=== PATIENT | female | born 1950 | race Caucasian/White ===

== ENCOUNTER → 2018-12-29 | Day surgery (SDC) | payer MEDICARE, OTHER ==
[2018-12-25 13:30] LABS: Urine Blood Negative /uL (Negative); Urine Specific Gravity 1.007 (1.001-1.035)
[2018-12-25 13:33] LABS: Basophils # (auto) 0.1 uL; Basophils % (auto) 1.1 % (0.0-2.0); Eosinophils # (auto) 0.2 uL; Hematocrit 41.4 % (36.0-46.0); Lymphocytes # (auto) 1.5 uL; Lymphocytes % (auto) 28.7 % (10.0-50.0); Mean Corpuscular Hemoglobin 31.4 pg (28.0-32.0); Mean Corpuscular Hgb Conc. 33.9 g/dL (32.0-36.0); Mean Corpuscular Volume 92.8 fL (80.0-100.0); Monocytes # (auto) 0.5 uL; Monocytes % (auto) 10.2 % (0.0-12.0); Platelet Count (auto) 174 10^3/uL (140-450); Red Blood Cells 4.46 10^6/uL (4.0-5.20); Red Cell Distribution Width 13.2 % (11.8-14.3); White Blood Cell 5.2 10^3/uL (4.4-10.8)
[2018-12-25 13:49] LABS: Potassium 3.9 mmol/L (3.5-5.1)
[2018-12-25 13:55] LABS: Albumin 3.6 g/dL (3.4-5.0); BUN/Creatinine Ratio 16.2; Bilirubin, Total 0.4 mg/dL (0.2-1.0); Calcium 8.9 mg/dL (8.5-10.1); INR < 0.93 (0.9-1.15); Partial Thromboplastin Time 26.2 sec (23.64-32.05)
[~2018-12-29] VITALS: Ht 175.3 cm; Wt 79.4 kg
[~2018-12-29] MED LIST: BUPIVACAINE 0.25% INJ 50ML VIAL ONE; CLON0.5T10; CYA100I IM; GABA100C9 PO; HYDROmorphone HCL 2 MG/ML VL ONE; LEVO125T7 PO; LIDOCAINE W/ EPINEPHRINE 2% INJ 20ML VIAL ONE; MEPERIDINE HCL (25 MG/ML) 1ML VIAL ONE; METOCLOPRAMIDE HCL 5MG/ml INJ 2ml VIAL IV PRN; MIDAZOLAM HCL 1MG/1ML-2 ML VIAL IV ONE; MIDAZOLAM HCL 1MG/1ML-2 ML VIAL ONE; MORPHINE SULF(PF) 0.5MG/ML 10ML VIAL ONE; MORPHINE SULFATE 4 MG/ML SYR/VIAL IV PRN; ONDANSETRON HCL 4 MG/2 ML VIAL ONE; PROPOFOL 10 MG/ML 20 ML IV ONE; ROPIVACAINE 0.5% (5MG/ML) 20ML AMPULE IJ ONE; SIMV-8 PO; SODIUM CHLORIDE LOCK 10 ML ONE; THYR60TA PO; VORT1TAB3 PO; ZOLP10TA PO; ceFAZolin 1GM/50ML 50 ML IV ONE; fentaNYL CITRATE 100 MCG/2 ML VL IV PRN; fentaNYL CITRATE 100 MCG/2 ML VL ONE
[2018-12-29] MEDS: HYDROmorphone HCL 2 MG/ML VL IV PRN ×6 (10:19→11:46)
[2018-12-29 12:20] VITALS: BP 121/55
== END | disposition home or self-care (01) ==
LOC: SUR 06:13
PROVIDERS: ATTEND Orthopaedic Surgery
DX: S83.241A Other tear of medial meniscus, current injury, right knee, initial encounter (principal); S83.281A Other tear of lateral meniscus, current injury, right knee, initial encounter; Q68.2 Congenital deformity of knee; M17.11 Unilateral primary osteoarthritis, right knee; M24.561 Contracture, right knee; D16.31 Benign neoplasm of short bones of right lower limb; M65.861 Other synovitis and tenosynovitis, right lower leg; F41.9 Anxiety disorder, unspecified; Z90.710 Acquired absence of both cervix and uterus; Z90.49 Acquired absence of other specified parts of digestive tract; Z98.890 Other specified postprocedural states; X58.XXXA Exposure to other specified factors, initial encounter; Y93.89 Activity, other specified; Y92.89 Other specified places as the place of occurrence of the external cause; Y99.8 Other external cause status
CPT/HCPCS: 27360; 27420; 29876; 29880; 36415; 80053; 81003; 85025; 85610; 85730; 86850; 86900; 86901; 93005; J0690; J1170; J2175; J2250; J2270; J2405; J2704; J2795; J3010; J3490

== ENCOUNTER → 2020-05-10 | Outpatient (CLI) | payer MEDICARE, OTHER ==
[~2020-05-10] MED LIST changes: +ARIP5TAB15 PO; -BUPIVACAINE 0.25% INJ 50ML VIAL ONE; +CETI10TA80 PO; -CYA100I IM; +HYDR12.56 PO; -HYDROmorphone HCL 2 MG/ML VL ONE; -LEVO125T7 PO; +LEVO75TA6 PO; -LIDOCAINE W/ EPINEPHRINE 2% INJ 20ML VIAL ONE; -MEPERIDINE HCL (25 MG/ML) 1ML VIAL ONE; -METOCLOPRAMIDE HCL 5MG/ml INJ 2ml VIAL IV PRN; -MIDAZOLAM HCL 1MG/1ML-2 ML VIAL IV ONE; -MIDAZOLAM HCL 1MG/1ML-2 ML VIAL ONE; -MORPHINE SULF(PF) 0.5MG/ML 10ML VIAL ONE; -MORPHINE SULFATE 4 MG/ML SYR/VIAL IV PRN; -ONDANSETRON HCL 4 MG/2 ML VIAL ONE; -PROPOFOL 10 MG/ML 20 ML IV ONE; -ROPIVACAINE 0.5% (5MG/ML) 20ML AMPULE IJ ONE; -SODIUM CHLORIDE LOCK 10 ML ONE; -THYR60TA PO; +TRAZ100T3 PO; -ZOLP10TA PO; +ZOLP12.52 PO; -ceFAZolin 1GM/50ML 50 ML IV ONE; -fentaNYL CITRATE 100 MCG/2 ML VL IV PRN; -fentaNYL CITRATE 100 MCG/2 ML VL ONE
== END | disposition home or self-care (01) ==
LOC: XYW 09:51
PROVIDERS: ATTEND Internal Medicine
DX: I08.2 Rheumatic disorders of both aortic and tricuspid valves (principal); Z86.73 Personal history of transient ischemic attack (TIA), and cerebral infarction without residual deficits
CPT/HCPCS: 93306

== ENCOUNTER 2023-02-24 11:00 | Emergency (ER) | payer MEDICARE, OTHER ==
[~2023-02-24] VITALS: Ht 175.3 cm; Wt 91.1 kg
[~2023-02-24 11:00] MED LIST changes: +CETI10TA2 PO; -CETI10TA80 PO; -CLON0.5T10; +CLON0.5T4; +GABA-1308 PO; -GABA100C9 PO; -HYDR12.56 PO; +HYDR12.59 PO; -SIMV-8 PO; +SIMV20TA20 PO; +TRAZ-228 PO; -TRAZ100T3 PO
[2023-02-24 15:02] VITALS: BP 138/78; PULSE 75; RESP 18; TEMP 98.2; O2SAT 98
[2023-02-24] MEDS ORDERED: methylPREDNISolone SOD SUCC 125 MG/2 ML VL IM ONE (15:45)
[2023-02-24] MEDS ORDERED: MELO7.5T7 PO (16:00)
[2023-02-24] MEDS ORDERED: LIDO5CRE14 EX (16:00)
[2023-02-24] MEDS ORDERED: HYDROcodone-ACET 5/325MG TAB PO ONE (16:15)
== END 2023-02-24 16:52 | disposition home or self-care (01) ==
LOC: ER 11:00
DX: M54.16 Radiculopathy, lumbar region (principal); I10 Essential (primary) hypertension; Z90.49 Acquired absence of other specified parts of digestive tract; Z90.710 Acquired absence of both cervix and uterus
CPT/HCPCS: 96372; 99283; J2930

== ENCOUNTER 2023-09-02 22:45 | Emergency (ER) | payer MEDICARE, OTHER ==
[~2023-09-02] VITALS: Ht 175.3 cm; Wt 86.0 kg
[~2023-09-02 22:45] MED LIST changes: +ARIP5TAB11 PO; -ARIP5TAB15 PO; +LIDO5CRE14 EX; +MELO7.5T7 PO
[2023-09-02 23:42] LABS: Basophils # (auto) 0.1 10 ^3/uL (0-0.2); Basophils % (auto) 0.7 % (0.0-2.0); Eosinophils # (auto) 0.1 10 ^3/uL (0-0.8); Eosinophils % (auto) 0.6 % (0.0-7.0); Hematocrit 40.2 % (36.0-46.0); Hemoglobin 13.9 g/dL (12.2-16.2); Lymphocytes # (auto) 1.2 10 ^3/uL (0.4-5.4); Lymphocytes % (auto) 12.7 % (10.0-50.0); Mean Corpuscular Hgb Conc. 34.5 g/dL (32.0-36.0); Mean Corpuscular Volume 89.9 fL (80.0-100.0); Monocytes # (auto) 0.7 10 ^3/uL (0-1.3); Monocytes % (auto) 7.1 % (0.0-12.0); Neutrophils # (auto) 7.7 10 ^3/uL (1.6-8.6); Neutrophils % (auto) 78.9 % (37.0-80.0); Red Blood Cells 4.47 10^6/uL (4.0-5.20); Red Cell Distribution Width 13.2 % (11.8-14.3); White Blood Cell 9.8 10^3/uL (4.4-10.8)
[2023-09-02 23:58] LABS: Alanine Aminotransferase 15 U/L (7-40); Alkaline Phosphatase 92 U/L (46-116); Anion Gap 9 (5-15); Aspartate Aminotransferase 20 U/L (13-40); BUN/Creatinine Ratio 8.8 (10.0-20.0); Bilirubin, Total 0.9 mg/dL (0.2-1.0); Blood Urea Nitrogen 8 mg/dL (9-23); Calcium 9.6 mg/dL (8.7-10.4); Carbon Dioxide 24 mmol/L (20-30); Chloride 101 mmol/L (98-107); Glucose 145 mg/dL (74-106); Potassium 2.6 mmol/L (3.5-5.1); Sodium 134 mmol/L (136-145); Total Protein 6.7 g/dL (5.7-8.2)
[2023-09-03 00:15] VITALS: TEMP 98.4
[2023-09-03] MEDS: KETAMINE 50mg/ML 10ml Vial (500mg/10ml) IV ONE (01:20)
[2023-09-03 02:08] VITALS: BP 146/59; PULSE 80; RESP 14; O2SAT 97
== END 2023-09-03 03:29 | disposition home or self-care (01) ==
LOC: ER 22:45
DX: S83.012A Lateral subluxation of left patella, initial encounter (principal); I10 Essential (primary) hypertension; Z90.49 Acquired absence of other specified parts of digestive tract; Z90.710 Acquired absence of both cervix and uterus; W01.0XXA Fall on same level from slipping, tripping and stumbling without subsequent striking against object, initial encounter; Y93.89 Activity, other specified; Y92.89 Other specified places as the place of occurrence of the external cause; Y99.8 Other external cause status
CPT/HCPCS: 27560; 36415; 71045; 73560; 73562; 80053; 84484; 85025; 93005; 99152